=== PATIENT | female | born 1940 | race Caucasian/White ===

== ENCOUNTER 2019-06-27 08:23 | Inpatient (IN) ==
[2019-06-27] MEDS ORDERED: CeFAZolin Syr 2,000MG/20 ML 2,000 MG/20 ML SYRINGE IVPB ONE (08:48)
[2019-06-27] MEDS ORDERED: Ringers Solution, Lactated 1,000 ML IVC SCH ×2 (09:00→13:17)
[2019-06-27] MEDS ORDERED: Ondansetron 4 MG/2 ML VIAL IVP ONE (09:08)
[2019-06-27] MEDS ORDERED: *HR* OxyCODONE Immed Rel 5 MG TABLET PO PRN ×2 (09:08→13:17)
[2019-06-27] MEDS ORDERED: Acetaminophen IV 1,000 MG/100 ML INFUS..BTL IVPB ONE (09:08)
[2019-06-27] MEDS ORDERED: Albuterol 2.5 MG/3 ML NEBULIZER IH PRN (09:08)
[2019-06-27] MEDS ORDERED: *HR* Labetalol 20 MG/4 ML SYRINGE IVP PRN (09:08)
[2019-06-27] MEDS ORDERED: *HR* HYDROmorphone (PF) 1 MG/ML SYRINGE IVP PRN (09:08)
[2019-06-27] MEDS ORDERED: *HR* Promethazine 25 MG/ML VIAL IVP PRN (09:08)
[2019-06-27] MEDS ORDERED: Famotidine 20 MG/2 ML VIAL IVP ONE (09:08)
[2019-06-27] MEDS ORDERED: *HR* Propofol 200 MG/20 ML VIAL IVP ONE (09:21)
[2019-06-27] MEDS ORDERED: *HR* FentaNYL (PF) 100 MCG/2 ML VIAL ONE (09:21)
[2019-06-27] MEDS ORDERED: *HR* Succinylcholine 200 MG/10 ML VIAL IVP ONE (09:23)
[2019-06-27] MEDS ORDERED: Lidocaine -MPF 2% 2 ML VIAL ONE (09:23)
[2019-06-27] MEDS ORDERED: Dexamethasone 4 MG/ML VIAL ONE (09:24)
[2019-06-27] MEDS ORDERED: Isovue-300 50ML VIAL ONE (10:59)
[2019-06-27] MEDS ORDERED: Lidocaine -MPF 4% 5 ML AMPUL ONE (11:02)
[2019-06-27] MEDS ORDERED: Ondansetron 4 MG/2 ML VIAL ONE (11:58)
[2019-06-27] MEDS ORDERED: EPHEDrine 50 MG/ML VIAL ONE (12:02)
[2019-06-27] MEDS ORDERED: Ondansetron 4 MG/2 ML VIAL IVP PRN (13:17)
[2019-06-27] MEDS: carvediloL 25 MG TABLET PO SCH (17:15)
[2019-06-27] MEDS: ceFAZolin 2,000 MG in 0.9 % Sodium Chloride 100 ML IVPB SCH ×2 (17:16→23:17)
[2019-06-27] MEDS: Gabapentin 300 MG CAPSULE PO SCH (21:23)
[2019-06-27] MEDS: Magnesium Oxide 400 MG TABLET PO SCH (21:23)
[2019-06-27] MEDS: (Icosapent Ethyl [Vascepa] 2 GM) PO SCH (21:24)
[2019-06-28] MEDS: (Icosapent Ethyl [Vascepa] 2 GM) PO SCH ×2 (07:58→20:50)
[2019-06-28] MEDS: (Linagliptin [Tradjenta] 5 MG) PO SCH (07:58)
[2019-06-28] MEDS: FEBUXOSTAT 40 MG PO SCH (07:58)
[2019-06-28] MEDS: Cholecalciferol (D-3) 1,000 UNIT (25MCG) TABLET PO SCH (07:59)
[2019-06-28] MEDS: Gabapentin 300 MG CAPSULE PO SCH ×2 (07:59→20:50)
[2019-06-28] MEDS: Furosemide 20 MG TABLET PO SCH (07:59)
[2019-06-28] MEDS: carvediloL 25 MG TABLET PO SCH ×2 (07:59→17:09)
[2019-06-28] MEDS: Magnesium Oxide 400 MG TABLET PO SCH ×2 (08:00→20:50)
[2019-06-29] MEDS: Gabapentin 300 MG CAPSULE PO SCH ×2 (08:36→20:27)
[2019-06-29] MEDS: Cholecalciferol (D-3) 1,000 UNIT (25MCG) TABLET PO SCH (08:36)
[2019-06-29] MEDS: carvediloL 25 MG TABLET PO SCH ×2 (08:37→16:57)
[2019-06-29] MEDS: Magnesium Oxide 400 MG TABLET PO SCH ×2 (08:37→20:28)
[2019-06-29] MEDS: Furosemide 20 MG TABLET PO SCH (08:37)
[2019-06-29] MEDS: FEBUXOSTAT 40 MG PO SCH (08:37)
[2019-06-29] MEDS: (Icosapent Ethyl [Vascepa] 2 GM) PO SCH ×2 (08:38→20:29)
[2019-06-29] MEDS: (Linagliptin [Tradjenta] 5 MG) PO SCH (08:38)
[2019-06-30] MEDS: carvediloL 25 MG TABLET PO SCH ×2 (10:49→18:08)
[2019-06-30] MEDS: Furosemide 20 MG TABLET PO SCH (10:49)
[2019-06-30] MEDS: Gabapentin 300 MG CAPSULE PO SCH ×2 (10:49→20:06)
[2019-06-30] MEDS: Magnesium Oxide 400 MG TABLET PO SCH ×2 (10:49→20:06)
[2019-06-30] MEDS: Cholecalciferol (D-3) 1,000 UNIT (25MCG) TABLET PO SCH (10:49)
[2019-06-30] MEDS: FEBUXOSTAT 40 MG PO SCH (17:57)
[2019-06-30] MEDS: (Icosapent Ethyl [Vascepa] 2 GM) PO SCH ×2 (17:57→20:07)
[2019-06-30] MEDS: (Linagliptin [Tradjenta] 5 MG) PO SCH (17:58)
[2019-07-01] MEDS: Cholecalciferol (D-3) 1,000 UNIT (25MCG) TABLET PO SCH (09:27)
[2019-07-01] MEDS: Furosemide 20 MG TABLET PO SCH (09:27)
[2019-07-01] MEDS: Gabapentin 300 MG CAPSULE PO SCH (09:27)
[2019-07-01] MEDS: Magnesium Oxide 400 MG TABLET PO SCH (09:27)
[2019-07-01] MEDS: carvediloL 25 MG TABLET PO SCH (09:27)
[2019-07-01] MEDS: (Icosapent Ethyl [Vascepa] 2 GM) PO SCH (09:31)
[2019-07-01] MEDS: FEBUXOSTAT 40 MG PO SCH (09:31)
[2019-07-01] MEDS: (Linagliptin [Tradjenta] 5 MG) PO SCH (09:31)
[2019-07-01 11:39] VITALS: BP 178/90
== END 2019-07-01 12:45 | DRG 479 ==
LOC: SAMDAY 08:23 → 3NENU 13:20
PROVIDERS: ADMIT Orthopaedic Surgery Orthopaedic Surgery of the Spine; ATTEND Orthopaedic Surgery Orthopaedic Surgery of the Spine